=== PATIENT | male | born 1970 | race Two or more races ===

== ENCOUNTER 2021-12-04 19:34 | Emergency (ER) | payer OTHER, BC ==
[2021-12-04] MEDS ORDERED: Acetaminophen/oxyCODONE 325-5 MG Tab PO ONE (19:46)
[2021-12-04] MEDS ORDERED: Sodium Chloride 0.9% 1,000 ML IV ONE (20:24)
[2021-12-04] MEDS ORDERED: Iopamidol 755 MG/ML 500 ML Multipack Bottle IVPUSH ONE (21:22)
[2021-12-04] MEDS ORDERED: Morphine 4 MG/ML VIAL IVPUSH ONE (22:16)
== END 2021-12-04 22:53 | disposition home or self-care (01) ==
LOC: MW.ED 19:34
DX: S83.8X1A Sprain of other specified parts of right knee, initial encounter (principal); W18.30XA Fall on same level, unspecified, initial encounter
CPT/HCPCS: 73562; 73706; 96361; 96374; 99283; A9270; J2270; J7030; Q9967